=== PATIENT | female | born 1985 | race Caucasian/White ===

== ENCOUNTER 2016-11-29 16:15 | Emergency (ER) | payer BC, OTHER ==
[~2016-11-29] VITALS: Ht 167.6 cm; Wt 53.1 kg
[2016-11-29 16:16] VITALS: BP 154/96
[2016-11-29] MEDS ORDERED: [UNRECOGNIZED DRUG - OTHER] SQ (16:36)
[2016-11-29] MEDS ORDERED: [UNRECOGNIZED DRUG - OTHER] SQ (16:37)
[2016-11-29] MEDS ORDERED: [UNRECOGNIZED DRUG - OTHER] SQ (16:37)
== END 2016-11-29 17:10 | disposition left against medical advice (07) ==
LOC: ER 16:15
DX: R20.0 Anesthesia of skin (principal); F10.99 Alcohol use, unspecified with unspecified alcohol-induced disorder

== ENCOUNTER → 2020-08-24 | Outpatient (CLI) | payer OTHER ==
[~2020-08-24] MED LIST: [UNRECOGNIZED DRUG - OTHER] SQ; [UNRECOGNIZED DRUG - OTHER] SQ; [UNRECOGNIZED DRUG - OTHER] SQ
== END ==
LOC: LAB 07:42
PROVIDERS: ATTEND Anesthesiology
DX: Z20.828 Contact with and (suspected) exposure to other viral communicable diseases (principal)